=== PATIENT | male | born 1965 | race Caucasian/White ===

== ENCOUNTER 2018-07-30 20:40 | Inpatient (IN) | payer BC ==
[~2018-07-30] VITALS: Ht 180.3 cm; Wt 68.7 kg
[2018-07-30] MEDS ORDERED: ONDANSETRON HCL 4MG/2ML INJ IV STA (22:58)
[2018-07-30] MEDS ORDERED: PANTOPRAZOLE SODIUM 40 MG/VIAL IV STA (22:58)
[2018-07-30] MEDS ORDERED: SODIUM CHLORIDE 0.9% 1,000 ML IV ONE (22:58)
[2018-07-30] MEDS ORDERED: OCTREOTIDE 1,000 MCG in SODIUM CHLORIDE 0.9% 100 ML IV STA (22:58)
[2018-07-30] MEDS ORDERED: OCTREOTIDE ACETATE 50 MCG/ML 1ML IV STA (22:58)
[2018-07-30] MEDS ORDERED: LORAZEPAM 2MG/ML CPJ IV ONE (23:00)
[2018-07-30] MEDS ORDERED: PHYTONADIONE 10MG/ML AMP SUBCUT ONE (23:00)
[2018-07-30 23:14] LABS: BASOPHILS % 0.6 % (0.0-2.0); HEMATOCRIT. 29.3 % (42.0-52.0); HEMOGLOBIN. 9.9 g/dL (14.0-18.0); LYMPHOCYTES % 7.2 % (20.0-50.0); MEAN CORPUSCULAR HEMOGLOBIN 33.3 pg (28.0-32.0); MEAN CORPUSCULAR VOLUME 98.9 fL (80.0-94.0); MEAN PLATELET VOLUME 9.3 fl (7.4-10.4); NEUTROPHILS % 83.2 % (40.0-76.0); PLATELET 133 x1000/uL (130-400); RED BLOOD CELL COUNT 2.96 mill/uL (4.7-6.1); RED CELL DISTRIBUTION WIDTH 13.5 % (11.6-14.6)
[2018-07-30 23:16] LABS: CHLORIDE 105 mEq/L (98-107)
[2018-07-30 23:20] LABS: ETHANOL BLOOD < 10 mg/dL
[2018-07-30 23:21] LABS: INR 1.1; PARTIAL THROMBOPLASTIN TIME 25.1 sec (23.4-31.0); PROTHROMBIN TIME 11.4 sec (9.1-11.1)
[2018-07-31] VITALS (10 sets, daily range): BP systolic 121–155; BP diastolic 46–88
[2018-07-31 02:07] LABS: BASOPHILS % 0.6 % (0.0-2.0); HEMATOCRIT. 28.9 % (42.0-52.0); HEMOGLOBIN. 9.5 g/dL (14.0-18.0); LYMPHOCYTES % 13.3 % (20.0-50.0); MEAN CORPUSCULAR HEMOGLOBIN 32.6 pg (28.0-32.0); MEAN CORPUSCULAR VOLUME 99.7 fL (80.0-94.0); MEAN PLATELET VOLUME 9.5 fl (7.4-10.4); MONOCYTES % 9.6 % (2.0-8.0); NEUTROPHILS % 76.5 % (40.0-76.0); PLATELET 126 x1000/uL (130-400); RED CELL DISTRIBUTION WIDTH 13.5 % (11.6-14.6)
[2018-07-31] MEDS ORDERED: SODIUM CHLORIDE 0.9% 1,000 ML IV SCH (02:21)
[2018-07-31 04:13] LABS: CLARITY URINE CLEAR (CLEAR); COLOR URINE YELLOW (YELLOW); KETONES URINE TRACE (NEGATIVE); LEUKOCYTE ESTERASE URINE NEGATIVE (NEGATIVE); NITRITE URINE NEGATIVE (NEGATIVE); OCCULT BLOOD URINE NEGATIVE (NEGATIVE); PROTEIN URINE NEGATIVE (NEGATIVE); SPECIFIC GRAVITY URINE 1.017 (1.005-1.030); UROBILINOGEN URINE 0.2 E.U./dL (0.2-1.0)
[2018-07-31 04:34] LABS: *AMPHETAMINES SCREEN URINE NEGATIVE (NEGATIVE); *BARBITURATES SCREEN URINE NEGATIVE (NEGATIVE); *BENZODIAZEPINES SCREEN URINE NEGATIVE (NEGATIVE); *COCAINE SCREEN URINE PRESUMTIVE POSITIVE (NEGATIVE)
[2018-07-31 04:35] LABS: CANNABINOID URINE SCREEN NEGATIVE (NEGATIVE); METHADONE URINE SCREEN NEGATIVE (NEGATIVE); OPIATES URINE SCREEN NEGATIVE (NEGATIVE); PHENCYCLIDINE URINE SCREEN NEGATIVE (NEGATIVE)
[2018-07-31] MEDS ORDERED: LORAZEPAM 2MG/ML CPJ IV PRN (12:30)
[2018-07-31 15:03] LABS: HEMATOCRIT 23.5 % (42.0-52.0); HEMOGLOBIN 7.9 g/dL (14.0-18.0)
[2018-07-31] MEDS: FOLIC ACID 1 MG, THIAMINE HCL 100 MG, MVI, ADULT NO.1 10 ML in DEXTROSE 5% WATER 1,000 ML IV SCH ×4 (15:12)
[2018-07-31] MEDS: PANTOPRAZOLE SODIUM 40 MG/VIAL IV SCH (18:40)
[2018-07-31 19:44] LABS: HEMATOCRIT 23.8 % (42.0-52.0)
[2018-07-31] MEDS: CHLORDIAZEPOXIDE 5 MG CAPSULE PO SCH (22:23)
[2018-07-31] MEDS: DEXT 5% WATER + KCL 20MEQ/L 1,000 ML IV SCH (22:23)
[2018-08-01] VITALS (15 sets, daily range): BP systolic 112–152; BP diastolic 57–84
[2018-08-01 05:42] LABS: HEMATOCRIT 25.9 % (42.0-52.0); HEMOGLOBIN 8.7 g/dL (14.0-18.0)
[2018-08-01 06:21] LABS: INR 1.1; PARTIAL THROMBOPLASTIN TIME 25.9 sec (23.4-31.0); PROTHROMBIN TIME 10.9 sec (9.1-11.1)
[2018-08-01 06:31] LABS: HEMATOCRIT 26.8 % (42.0-52.0); HEMOGLOBIN 9.1 g/dL (14.0-18.0); PLATELET 112 x1000/uL (130-400); RED BLOOD CELL COUNT 2.76 mill/uL (4.7-6.1); RED CELL DISTRIBUTION WIDTH 15.5 % (11.6-14.6)
[2018-08-01 07:10] LABS: FOLIC ACID (FOLATE) SERUM >20 ng/mL ng/mL (>5.38)
[2018-08-01] MEDS: CHLORDIAZEPOXIDE 5 MG CAPSULE PO SCH ×3 (07:12→21:29)
[2018-08-01] MEDS: PANTOPRAZOLE SODIUM 40 MG/VIAL IV SCH ×2 (07:12→17:26)
[2018-08-01 07:15] LABS: CHLORIDE 110 mEq/L (98-107)
[2018-08-01 07:16] LABS: HEPATITIS B SURFACE ANTIGEN NEGATIVE
[2018-08-01 07:24] LABS: GAMMA GLUTAMYL TRANSPEPTIDASE 575 IU/L (11-50); VITAMIN B12 SERUM 785 pg/mL (211-911)
[2018-08-01 07:45] LABS: HEPATITIS A AB IGM NEGATIVE (NEGATIVE)
[2018-08-01] MEDS: DEXT 5% WATER + KCL 20MEQ/L 1,000 ML IV SCH ×2 (08:52→14:44)
[2018-08-01] MEDS: FOLIC ACID 1 MG, THIAMINE HCL 100 MG, MVI, ADULT NO.1 10 ML in DEXTROSE 5% WATER 1,000 ML IV SCH ×4 (15:00)
[2018-08-01] MEDS: DEXT 5%/0.45% NACL KCL 20MEQ/L 1,000 ML IV SCH (21:29)
[2018-08-02] VITALS (10 sets, daily range): BP systolic 108–147; BP diastolic 59–90
[2018-08-02 01:00] LABS: BASOPHILS % 1.5 % (0.0-2.0); EOSINOPHILS % 1.3 % (0.0-5.0); HEMATOCRIT. 27.2 % (42.0-52.0); HEMOGLOBIN. 9.3 g/dL (14.0-18.0); LYMPHOCYTES % 33.8 % (20.0-50.0); MEAN CORPUSCULAR HEMOGLOBIN 33.2 pg (28.0-32.0); MEAN CORPUSCULAR VOLUME 96.7 fL (80.0-94.0); MEAN PLATELET VOLUME 8.4 fl (7.4-10.4); MONOCYTES % 7.9 % (2.0-8.0); NEUTROPHILS % 55.5 % (40.0-76.0); PLATELET 135 x1000/uL (130-400); RED BLOOD CELL COUNT 2.81 mill/uL (4.7-6.1); RED CELL DISTRIBUTION WIDTH 14.9 % (11.6-14.6)
[2018-08-02 01:09] LABS: CHLORIDE 105 mEq/L (98-107)
[2018-08-02] MEDS: CHLORDIAZEPOXIDE 5 MG CAPSULE PO SCH ×2 (05:19→14:43)
[2018-08-02] MEDS: DEXT 5%/0.45% NACL KCL 20MEQ/L 1,000 ML IV SCH ×2 (05:19→12:00)
[2018-08-02] MEDS: PANTOPRAZOLE SODIUM 40 MG/VIAL IV SCH ×2 (05:19→18:38)
[2018-08-02 06:45] LABS: BASOPHILS % 1.1 % (0.0-2.0); EOSINOPHILS % 0.9 % (0.0-5.0); HEMATOCRIT. 25.6 % (42.0-52.0); HEMOGLOBIN. 8.7 g/dL (14.0-18.0); MEAN CORPUSCULAR HEMOGLOBIN 32.8 pg (28.0-32.0); MEAN CORPUSCULAR VOLUME 96.8 fL (80.0-94.0); MONOCYTES % 8.1 % (2.0-8.0); NEUTROPHILS % 77.9 % (40.0-76.0); PLATELET 118 x1000/uL (130-400); RED BLOOD CELL COUNT 2.65 mill/uL (4.7-6.1)
[2018-08-02 08:28] LABS: CHLORIDE 108 mEq/L (98-107)
[2018-08-02] MEDS ORDERED: POTASSIUM CHLORIDE IV NR ×4 (11:00)
[2018-08-02] MEDS ORDERED: WATER IV NR ×4 (11:00)
[2018-08-02] MEDS ORDERED: DEXT 5% IV NR ×4 (11:00)
[2018-08-02] MEDS ORDERED: SODIUM CHLORIDE IV NR ×4 (11:00)
[2018-08-02] MEDS ORDERED: SIMETHICONE 40 MG/0.6 ML 30ML ONE (11:26)
[2018-08-02] MEDS ORDERED: FENTANYL CITRATE/PF 50MCG/ML 2ML VIAL ONE (11:40)
[2018-08-02] MEDS ORDERED: DIPHENHYDRAMINE 50MG/ML VIAL ONE (11:40)
[2018-08-02] MEDS ORDERED: MIDAZOLAM HCL 2 MG/2 ML VIAL ONE (11:40)
[2018-08-02] MEDS ORDERED: PROPOFOL 200MG/20ML VIAL IV ONE (11:41)
[2018-08-02] MEDS: FOLIC ACID 1 MG, THIAMINE HCL 100 MG, MVI, ADULT NO.1 10 ML in DEXTROSE 5% WATER 1,000 ML IV SCH ×4 (14:42)
[2018-08-02] MEDS ORDERED: VITA-137 MT ×2 (19:34→19:36)
[2018-08-02] MEDS ORDERED: L10 PO ×2 (19:34→19:36)
[2018-08-02] MEDS ORDERED: FERR325T6 MT ×2 (19:35→19:37)
== END 2018-08-02 20:30 | disposition home or self-care (01) | DRG 377 ==
LOC: ER 20:40 → 5EST 07-31 02:22 → EDBEDREQ 07-31 02:26 → EDBEDREQSVC 07-31 02:26 → EDBEDREQTM 07-31 02:26 → ENRESERV 07-31 07:18
PROVIDERS: ADMIT Ophthalmology; ATTEND Ophthalmology
PROC: 30233N1 Transfusion of Nonautologous Red Blood Cells into Peripheral Vein, Percutaneous Approach (ICD-10-PCS; 2018-07-31)
PROC: 0DB68ZX Excision of Stomach, Via Natural or Artificial Opening Endoscopic, Diagnostic (ICD-10-PCS; principal; 2018-08-02)
DX: K29.71 Gastritis, unspecified, with bleeding (principal); I21.4 Non-ST elevation (NSTEMI) myocardial infarction; I10 Essential (primary) hypertension; R04.0 Epistaxis; E87.6 Hypokalemia; F17.210 Nicotine dependence, cigarettes, uncomplicated; J44.9 Chronic obstructive pulmonary disease, unspecified; K40.90 Unilateral inguinal hernia, without obstruction or gangrene, not specified as recurrent; K44.9 Diaphragmatic hernia without obstruction or gangrene; K74.60 Unspecified cirrhosis of liver; F10.20 Alcohol dependence, uncomplicated; D53.1 Other megaloblastic anemias, not elsewhere classified; K29.81 Duodenitis with bleeding
CPT/HCPCS: 36415; 71045; 76700; 80048; 80076; 80305; 80320; 82270; 82607; 82746; 82977; 83605; 84484; 85014; 85018; 85027; 86705; 86709; 86803; 86850; 86900; 86920; 87340; 88305; 88312; 88313; 93005; 93306; 96374; 96375; 99291; C9113; J1200; J2060; J2250; J2354; J2405; J2704; J3010; J3411; J3430; J3480; J3490; J7030; J7040; J7050; J7060; J7070; J7131; P9016; G0480

== ENCOUNTER 2023-01-20 18:22 | Inpatient (IN) | payer SELFPAY ==
[~2023-01-20] VITALS: Ht 182.9 cm; Wt 87.1 kg
[~2023-01-20 18:22] MED LIST: FERR325T6 MT; L10 PO; VITA-137 MT
[2023-01-20] MEDS ORDERED: SODIUM CHLORIDE 0.9% 1,000 ML IV ONE (18:30)
[2023-01-20 19:01] LABS: DIFFERENTIAL COMMENT 1; HEMOGLOBIN. 10.3 g/dL (14.0-18.0); MEAN CORPUSCULAR HEMOGLOBIN 33.4 pg (28.0-32.0); MEAN CORPUSCULAR HGB CONC 34.3 g/dL (31.0-37.0); MEAN CORPUSCULAR VOLUME 97.4 fL (80.0-94.0); MEAN PLATELET VOLUME 8.3 fl (7.4-10.4); PLATELET 100 x1000/uL (130-400); RED BLOOD CELL COUNT 3.07 mill/uL (4.7-6.1); RED CELL DISTRIBUTION WIDTH 20.9 % (11.6-14.6); WHITE BLOOD COUNT 7.5 x1000/uL (4.5-11.0)
[2023-01-20 19:06] LABS: CHLORIDE 87 mEq/L (98-107); INDEX HEMOLYSI 1 (1-3); INDEX ICTERIC 3 (1-4); INDEX LIPEMIC 1 (1-3); POTASSIUM 2.9 mEq/L (3.5-5.1); SODIUM 128 mEq/L (136-145)
[2023-01-20 19:07] LABS: INR 2.3; PARTIAL THROMBOPLASTIN TIME 37.6 sec (23.4-31.0); PROTHROMBIN TIME 23.7 sec (9.6-11.0)
[2023-01-20 19:13] LABS: AMMONIA 35 uMol/L (<32)
[2023-01-20 19:17] LABS: ALANINE AMINOTRANSFERASE 54 IU/L (13-61); ALBUMIN 2.2 g/dL (3.4-5.0); ASPARTATE AMINOTRANSFERASE 96 IU/L (15-37); CALCIUM 7.7 mg/dL (8.5-10.1); CARBON DIOXIDE 32 mEq/L (21-32); CREATININE 0.5 mg/dL (0.6-1.3); ETHANOL BLOOD < 10 mg/dL (-10); GLUCOSE 132 mg/dL (70-105); NT PRO B-TYPE NATRIURETIC PEP 50 pg/mL (5-125); PLATELET ESTIMATE DECREASED; PROTEIN TOTAL 6.7 g/dL (6.0-8.3); TROPONIN I HIGH SENSITIVITY 29 ng/L (<78); UREA NITROGEN BLOOD 19 mg/dL (7-21)
[2023-01-20 19:18] LABS: ANISOCYTOSIS 2+; HYPOCHROMASIA 1+; TARGET CELLS 1+
[2023-01-20] MEDS ORDERED: LACTULOSE 20G/30ML UDC PO ONE (19:45)
[2023-01-20] MEDS ORDERED: POTASSIUM CHLORIDE 20MEQ TABLET SR PO ONE (20:15)
[2023-01-20] MEDS ORDERED: VANCOMYCIN 1G PREMIX 200 ML IV ONE (21:00)
[2023-01-20] MEDS ORDERED: PIPERACILLIN/TAZ 3.375G PREMIX 50 ML IV ONE (21:00)
[2023-01-20] MEDS ORDERED: VANCOMYCIN 1G PREMIX 200 ML IV NR (21:00)
[2023-01-20] MEDS ORDERED: PIPERACILLIN/TAZ 3.375G PREMIX 50 ML IV NR (21:00)
[2023-01-20 21:51] LABS: LACTIC ACID 5.3 mmol/L (0.4-2.0)
[2023-01-21] VITALS (7 sets, daily range): BP systolic 133–156; BP diastolic 70–86; PULSE 116–124; RESP 18–21; TEMP 97.5–98.8
[2023-01-21] MEDS ORDERED: CLONIDINE 0.1MG TABLET PO PRN (02:00)
[2023-01-21] MEDS ORDERED: CEFTRIAXONE 1GM PREMIX 50 ML IV SCH (02:00)
[2023-01-21] MEDS ORDERED: DEXTROSE 50% WATER 50ML SYRINGE IV PRN (02:00)
[2023-01-21] MEDS ORDERED: FOLIC ACID 1 MG, THIAMINE HCL 100 MG, MVI, ADULT NO.1 10 ML in DEXTROSE 5% WATER 1,000 ML IV ONE ×4 (03:30)
[2023-01-21 06:48] LABS: HEMATOCRIT. 28.2 % (42.0-52.0); HEMOGLOBIN. 9.7 g/dL (14.0-18.0); MEAN CORPUSCULAR HEMOGLOBIN 33.4 pg (28.0-32.0); MEAN CORPUSCULAR HGB CONC 34.3 g/dL (31.0-37.0); MEAN CORPUSCULAR VOLUME 97.5 fL (80.0-94.0); RED CELL DISTRIBUTION WIDTH 21.2 % (11.6-14.6); WHITE BLOOD COUNT 7.9 x1000/uL (4.5-11.0)
[2023-01-21 06:57] LABS: DIFFERENTIAL COMMENT 1
[2023-01-21 06:58] LABS: CHLORIDE 91 mEq/L (98-107); INDEX HEMOLYSI 1 (1-3); INDEX ICTERIC 3 (1-4); INDEX LIPEMIC 1 (1-3); SODIUM 129 mEq/L (136-145)
[2023-01-21 07:04] LABS: CALCIUM 7.6 mg/dL (8.5-10.1); CARBON DIOXIDE 32 mEq/L (21-32); CREATININE 0.4 mg/dL (0.6-1.3); GLUCOSE 124 mg/dL (70-105); UREA NITROGEN BLOOD 18 mg/dL (7-21)
[2023-01-21 07:10] LABS: POTASSIUM 2.8 mEq/L (3.5-5.1)
[2023-01-21] MEDS: BLOOD SUGAR DIAGNOSTIC STRIP TEST SCH ×4 (07:20→20:19)
[2023-01-21] MEDS: INSULIN LISPRO 100 UNITS/ML SUBCUT SCH ×4 (07:20→20:19)
[2023-01-21] MEDS ORDERED: POTASSIUM CHLORIDE INJ 40 MEQ in DEXT 5% WATER 250 ML IV ONE (07:30)
[2023-01-21] MEDS: PANTOPRAZOLE 40MG DR TABLET PO SCH (08:10)
[2023-01-21] MEDS: SPIRONOLACTONE 50MG TABLET PO SCH (08:10)
[2023-01-21] MEDS: CEFTRIAXONE 1,000 MG in DEXTROSE 5% WATER 50 ML IV SCH (08:11)
[2023-01-21 08:47] LABS: ANISOCYTOSIS 2+; MEAN PLATELET VOLUME 8.5 fl (7.4-10.4); PLATELET 93 x1000/uL (130-400); PLATELET ESTIMATE DECREASED; TARGET CELLS 1+
[2023-01-21] MEDS ORDERED: FUROSEMIDE 40MG TABLET PO SCH (09:00)
[2023-01-21] MEDS: FUROSEMIDE 40MG TABLET PO SCH ×2 (09:02→16:17)
[2023-01-21] MEDS: KCL 20MEQ/100ML X 2 FOR TOTAL KCL 40MEQ/200ML IV SCH ×2 (09:02→10:03)
[2023-01-21 10:20] LABS: CLARITY URINE CLEAR (CLEAR); COLOR URINE DARK YELLOW (YELLOW); GLUCOSE URINE NEGATIVE (NEGATIVE); KETONES URINE TRACE (NEGATIVE); LEUKOCYTE ESTERASE URINE TRACE (NEGATIVE); NITRITE URINE NEGATIVE (NEGATIVE); OCCULT BLOOD URINE NEGATIVE (NEGATIVE); PROTEIN URINE NEGATIVE (NEGATIVE); SPECIFIC GRAVITY URINE 1.023 (1.005-1.030)
[2023-01-21 10:55] LABS: SQUAMOUS EPITHELIAL CELL URINE FEW /lpf (RARE/1+)
[2023-01-21 10:56] LABS: MUCUS URINE TRACE /lpf (NONE/TRACE)
[2023-01-21 10:57] LABS: BACTERIA URINE TRACE; RBC URINE 0-2 /hpf (0-2)
[2023-01-21 10:59] LABS: WBC URINE 0-2 /hpf (0-2)
[2023-01-21 11:00] LABS: *AMPHETAMINES SCREEN URINE NEGATIVE (NEGATIVE); *BARBITURATES SCREEN URINE NEGATIVE (NEGATIVE); *BENZODIAZEPINES SCREEN URINE NEGATIVE (NEGATIVE); *COCAINE SCREEN URINE NEGATIVE (NEGATIVE); CANNABINOID URINE SCREEN NEGATIVE (NEGATIVE); ECSTASY MDMA SCREEN URINE NEGATIVE (NEGATIVE); METHADONE URINE SCREEN NEGATIVE (NEGATIVE); OPIATES URINE SCREEN NEGATIVE (NEGATIVE); PHENCYCLIDINE URINE SCREEN NEGATIVE (NEGATIVE)
[2023-01-21] MEDS ORDERED: LORAZEPAM 2MG/ML CPJ IV PRN (15:45)
[2023-01-21] MEDS: METOPROLOL TARTRATE 25MG TABLET PO SCH (20:34)
[2023-01-22] VITALS (9 sets, daily range): BP systolic 118–160; BP diastolic 54–89; PULSE 69–122; RESP 16–22; TEMP 96.1–98.2
[2023-01-22] MEDS: INSULIN LISPRO 100 UNITS/ML SUBCUT SCH ×4 (06:19→20:45)
[2023-01-22] MEDS: BLOOD SUGAR DIAGNOSTIC STRIP TEST SCH ×4 (06:19→20:46)
[2023-01-22] MEDS: CEFTRIAXONE 1,000 MG in DEXTROSE 5% WATER 50 ML IV SCH (10:48)
[2023-01-22 10:55] LABS: HEMATOCRIT 24.4 % (42.0-52.0); HEMOGLOBIN 8.3 g/dL (14.0-18.0)
[2023-01-22] MEDS: FUROSEMIDE 40MG TABLET PO SCH ×2 (10:58→17:50)
[2023-01-22] MEDS: SPIRONOLACTONE 50MG TABLET PO SCH (10:58)
[2023-01-22] MEDS: METOPROLOL TARTRATE 25MG TABLET PO SCH ×2 (10:59→20:45)
[2023-01-22] MEDS: PANTOPRAZOLE 40MG DR TABLET PO SCH (10:59)
[2023-01-22 11:08] LABS: PROTHROMBIN TIME 20.3 sec (9.6-11.0)
[2023-01-22] MEDS ORDERED: CEFTRIAXONE 1GM PREMIX 50 ML IV SCH (14:15)
[2023-01-22 16:17] LABS: CHLORIDE 87 mEq/L (98-107); INDEX HEMOLYSI 1 (1-3); INDEX ICTERIC 3 (1-4); INDEX LIPEMIC 1 (1-3); POTASSIUM 3.1 mEq/L (3.5-5.1); SODIUM 124 mEq/L (136-145)
[2023-01-22 16:22] LABS: CARBON DIOXIDE 31 mEq/L (21-32); CREATININE 0.5 mg/dL (0.6-1.3); GLUCOSE 92 mg/dL (70-105); UREA NITROGEN BLOOD 19 mg/dL (7-21)
[2023-01-22] MEDS ORDERED: HYDROCODONE/ACETAMINOPHEN 5/325MG TABLET PO PRN (17:15)
[2023-01-22] MEDS ORDERED: NALOXONE HCL 0.4MG/ML VIAL IV PRN (17:15)
[2023-01-22 17:41] LABS: BASOPHILS % 0.2 % (0.0-2.0); HEMOGLOBIN. 8.5 g/dL (14.0-18.0); LYMPHOCYTES % 15.7 % (20.0-50.0); MEAN CORPUSCULAR HEMOGLOBIN 33.4 pg (28.0-32.0); MEAN CORPUSCULAR HGB CONC 33.8 g/dL (31.0-37.0); MEAN CORPUSCULAR VOLUME 98.8 fL (80.0-94.0); MEAN PLATELET VOLUME 8.5 fl (7.4-10.4); MONOCYTES % 11.4 % (2.0-8.0); NEUTROPHILS % 72.7 % (40.0-76.0); PLATELET 70 x1000/uL (130-400); RED BLOOD CELL COUNT 2.53 mill/uL (4.7-6.1); RED CELL DISTRIBUTION WIDTH 20.7 % (11.6-14.6); WHITE BLOOD COUNT 7.7 x1000/uL (4.5-11.0)
[2023-01-22] MEDS: AZITHROMYCIN 500 MG TABLET PO SCH (17:49)
[2023-01-22] MEDS: POTASSIUM CHLORIDE 20MEQ/PACKET PO SCH (17:50)
[2023-01-23] VITALS (16 sets, daily range): BP systolic 103–152; BP diastolic 62–87; PULSE 63–104; RESP 18–20; TEMP 97–98.1; O2SAT 92
[2023-01-23] MEDS: INSULIN LISPRO 100 UNITS/ML SUBCUT SCH ×4 (06:26→21:00)
[2023-01-23] MEDS: BLOOD SUGAR DIAGNOSTIC STRIP TEST SCH ×4 (06:26→21:00)
[2023-01-23] MEDS: PANTOPRAZOLE 40MG DR TABLET PO SCH (08:16)
[2023-01-23] MEDS: POTASSIUM CHLORIDE 20MEQ/PACKET PO SCH (08:16)
[2023-01-23] MEDS: FUROSEMIDE 40MG TABLET PO SCH ×2 (08:16→16:52)
[2023-01-23] MEDS: SPIRONOLACTONE 50MG TABLET PO SCH ×2 (08:16→14:24)
[2023-01-23] MEDS: AZITHROMYCIN 500 MG TABLET PO SCH (08:17)
[2023-01-23] MEDS: CEFTRIAXONE 1,000 MG in DEXTROSE 5% WATER 50 ML IV SCH (08:17)
[2023-01-23] MEDS: METOPROLOL TARTRATE 25MG TABLET PO SCH ×2 (08:17→21:00)
[2023-01-23] MEDS: IPRATROPIUM BROMIDE (0.02%) 0.5MG/2.5ML NEB HHN SCH ×3 (10:16→21:31)
[2023-01-23 10:38] LABS: BASOPHILS % 0.7 % (0.0-2.0); EOSINOPHILS % 0.5 % (0.0-5.0); HEMOGLOBIN. 8.2 g/dL (14.0-18.0); LYMPHOCYTES % 16.7 % (20.0-50.0); MEAN CORPUSCULAR HEMOGLOBIN 33.2 pg (28.0-32.0); MEAN CORPUSCULAR HGB CONC 34.1 g/dL (31.0-37.0); MEAN CORPUSCULAR VOLUME 97.6 fL (80.0-94.0); MEAN PLATELET VOLUME 8.4 fl (7.4-10.4); MONOCYTES % 12.6 % (2.0-8.0); NEUTROPHILS % 69.5 % (40.0-76.0); PLATELET 76 x1000/uL (130-400); RED BLOOD CELL COUNT 2.46 mill/uL (4.7-6.1); RED CELL DISTRIBUTION WIDTH 21.1 % (11.6-14.6); WHITE BLOOD COUNT 7.2 x1000/uL (4.5-11.0)
[2023-01-23 11:04] LABS: CHLORIDE 92 mEq/L (98-107); INDEX HEMOLYSI 1 (1-3); INDEX ICTERIC 3 (1-4); INDEX LIPEMIC 1 (1-3); POTASSIUM 2.9 mEq/L (3.5-5.1); SODIUM 127 mEq/L (136-145)
[2023-01-23 11:09] LABS: CALCIUM 7.8 mg/dL (8.5-10.1); CARBON DIOXIDE 32 mEq/L (21-32); CREATININE 0.6 mg/dL (0.6-1.3); GLUCOSE 98 mg/dL (70-105); UREA NITROGEN BLOOD 20 mg/dL (7-21)
[2023-01-23] MEDS ORDERED: POTASSIUM CHLORIDE 20MEQ/PACKET PO NR (11:30)
[2023-01-23] MEDS ORDERED: POTASSIUM CHLORIDE 20MEQ TABLET SR PO NR (13:15)
[2023-01-23 17:56] LABS: INR 1.9; PROTHROMBIN TIME 19.7 sec (9.6-11.0)
[2023-01-24] VITALS (11 sets, daily range): BP systolic 101–131; BP diastolic 55–80; PULSE 92–116; RESP 18–20; TEMP 97–100.4
[2023-01-24 05:55] LABS: CHLORIDE 97 mEq/L (98-107); INDEX HEMOLYSI 1 (1-3); INDEX ICTERIC 3 (1-4); INDEX LIPEMIC 1 (1-3); SODIUM 131 mEq/L (136-145)
[2023-01-24 06:01] LABS: CALCIUM 8.2 mg/dL (8.5-10.1); CARBON DIOXIDE 28 mEq/L (21-32); CREATININE 0.6 mg/dL (0.6-1.3); GLUCOSE 93 mg/dL (70-105); UREA NITROGEN BLOOD 15 mg/dL (7-21)
[2023-01-24 06:11] LABS: BASOPHILS % 1.1 % (0.0-2.0); HEMATOCRIT. 24.3 % (42.0-52.0); HEMOGLOBIN. 8.4 g/dL (14.0-18.0); LYMPHOCYTES % 18.7 % (20.0-50.0); MEAN CORPUSCULAR HEMOGLOBIN 34.7 pg (28.0-32.0); MEAN CORPUSCULAR HGB CONC 34.7 g/dL (31.0-37.0); MEAN PLATELET VOLUME 8.5 fl (7.4-10.4); MONOCYTES % 12.4 % (2.0-8.0); NEUTROPHILS % 66.8 % (40.0-76.0); PLATELET 81 x1000/uL (130-400); RED BLOOD CELL COUNT 2.43 mill/uL (4.7-6.1); RED CELL DISTRIBUTION WIDTH 21.4 % (11.6-14.6); WHITE BLOOD COUNT 6.7 x1000/uL (4.5-11.0)
[2023-01-24] MEDS: BLOOD SUGAR DIAGNOSTIC STRIP TEST SCH ×4 (06:17→21:09)
[2023-01-24 06:40] LABS: INR 1.7; PROTHROMBIN TIME 17.9 sec (9.6-11.0)
[2023-01-24] MEDS: CEFTRIAXONE 1,000 MG in DEXTROSE 5% WATER 50 ML IV SCH (08:58)
[2023-01-24] MEDS: FUROSEMIDE 40MG TABLET PO SCH ×2 (08:59→17:16)
[2023-01-24] MEDS: POTASSIUM CHLORIDE 20MEQ/PACKET PO SCH (08:59)
[2023-01-24] MEDS: AZITHROMYCIN 500 MG TABLET PO SCH (08:59)
[2023-01-24] MEDS: PANTOPRAZOLE 40MG DR TABLET PO SCH (08:59)
[2023-01-24] MEDS: METOPROLOL TARTRATE 25MG TABLET PO SCH ×2 (09:00→21:09)
[2023-01-24] MEDS: SPIRONOLACTONE 50MG TABLET PO SCH (09:24)
[2023-01-24] MEDS: IPRATROPIUM BROMIDE (0.02%) 0.5MG/2.5ML NEB HHN SCH ×2 (09:45→20:55)
[2023-01-24] MEDS ORDERED: LIDOCAINE HCL 1% 10 MG/ML 10ML VIAL ONE (11:29)
[2023-01-24] MEDS ORDERED: SODIUM BICARBONATE 4% (2.4MEQ) 5ML VIAL IV ONE (11:29)
[2023-01-24] MEDS: INSULIN LISPRO 100 UNITS/ML SUBCUT SCH ×3 (12:40→21:00)
[2023-01-24] MEDS ORDERED: LACTULOSE 20G/30ML UDC PO NR (16:30)
[2023-01-24 17:22] LABS: BODY FLUID MONOCYTES 7 %; BODY FLUID RBC 20 /cu mm (0-2000); BODY FLUID WBC 395 /cu mm (0-200)
[2023-01-24] MEDS ORDERED: ALBUMIN HUMAN 25GM/100ML (25%) IV NR (17:30)
[2023-01-24] MEDS: PHYTONADIONE 10MG/ML AMP SUBCUT SCH (17:44)
[2023-01-24] MEDS: OCTREOTIDE 1,000 MCG in SODIUM CHLORIDE 0.9% 98 ML IV SCH (19:00)
[2023-01-24 20:25] LABS: HEMOGLOBIN 7.6 g/dL (14.0-18.0)
[2023-01-24 20:46] LABS: AMMONIA 39 uMol/L (<32)
[2023-01-24 20:50] LABS: ALBUMIN 2.2 g/dL (3.4-5.0); BILIRUBIN DIRECT 2.5 mg/dL (0.0-0.2); BILIRUBIN TOTAL 3.8 mg/dL (0.1-1.0)
[2023-01-24 21:03] LABS: FERRITIN 190 ng/mL (22-322)
[2023-01-24 21:14] LABS: HEPATITIS B SURFACE ANTIGEN NEGATIVE
[2023-01-24 21:24] LABS: VITAMIN B12 SERUM >2000 pg/mL pg/mL (211-911)
[2023-01-24 21:43] LABS: HEPATITIS A AB IGM NEGATIVE (NEGATIVE)
[2023-01-25] VITALS (11 sets, daily range): BP systolic 91–136; BP diastolic 56–78; PULSE 64–86; RESP 18–20; TEMP 97.8–100.9; O2SAT 95
[2023-01-25] MEDS: IPRATROPIUM BROMIDE (0.02%) 0.5MG/2.5ML NEB HHN SCH ×4 (01:05→21:06)
[2023-01-25 03:17] LABS: BASOPHILS % 2.3 % (0.0-2.0); EOSINOPHILS % 4.1 % (0.0-5.0); HEMOGLOBIN. 7.5 g/dL (14.0-18.0); LYMPHOCYTES % 23.4 % (20.0-50.0); MEAN CORPUSCULAR HEMOGLOBIN 34.2 pg (28.0-32.0); MEAN CORPUSCULAR VOLUME 100.5 fL (80.0-94.0); NEUTROPHILS % 55.2 % (40.0-76.0); PLATELET 80 x1000/uL (130-400); RED BLOOD CELL COUNT 2.19 mill/uL (4.7-6.1); RED CELL DISTRIBUTION WIDTH 21.2 % (11.6-14.6); WHITE BLOOD COUNT 5.6 x1000/uL (4.5-11.0)
[2023-01-25 03:22] LABS: DIFFERENTIAL COMMENT 1
[2023-01-25 03:27] LABS: CHLORIDE 98 mEq/L (98-107); INDEX HEMOLYSI 1 (1-3); INDEX ICTERIC 2 (1-4); INDEX LIPEMIC 1 (1-3); INR 1.9; POTASSIUM 3.4 mEq/L (3.5-5.1); SODIUM 131 mEq/L (136-145)
[2023-01-25 03:34] LABS: CALCIUM 8.3 mg/dL (8.5-10.1); CARBON DIOXIDE 27 mEq/L (21-32); CREATININE 0.5 mg/dL (0.6-1.3); GLUCOSE 91 mg/dL (70-105); UREA NITROGEN BLOOD 12 mg/dL (7-21)
[2023-01-25] MEDS: BLOOD SUGAR DIAGNOSTIC STRIP TEST SCH ×4 (06:39→20:47)
[2023-01-25] MEDS: INSULIN LISPRO 100 UNITS/ML SUBCUT SCH ×4 (06:39→20:53)
[2023-01-25] MEDS: CEFTRIAXONE 1,000 MG in DEXTROSE 5% WATER 50 ML IV SCH ×2 (08:57→15:29)
[2023-01-25] MEDS: POTASSIUM CHLORIDE 20MEQ/PACKET PO SCH (08:59)
[2023-01-25] MEDS: PANTOPRAZOLE 40MG DR TABLET PO SCH (08:59)
[2023-01-25] MEDS: FUROSEMIDE 40MG TABLET PO SCH ×2 (08:59→16:58)
[2023-01-25] MEDS: METOPROLOL TARTRATE 25MG TABLET PO SCH ×2 (08:59→20:47)
[2023-01-25] MEDS: SPIRONOLACTONE 50MG TABLET PO SCH (08:59)
[2023-01-25] MEDS: AZITHROMYCIN 500 MG TABLET PO SCH (09:00)
[2023-01-25] MEDS ORDERED: PROPOFOL 200MG/20ML VIAL IV ONE (11:12)
[2023-01-25] MEDS ORDERED: DEXAMETHASONE 4MG/ML 1ML VIAL ONE (11:13)
[2023-01-25] MEDS ORDERED: MIDAZOLAM HCL 2 MG/2 ML VIAL ONE (11:13)
[2023-01-25] MEDS ORDERED: ONDANSETRON HCL 4MG/2ML INJ ONE (11:13)
[2023-01-25] MEDS ORDERED: PHENYLEPHRINE HCL 10 MG/ML 1ML (IV VIAL) IV ONE (11:29)
[2023-01-25] MEDS: PHYTONADIONE 10MG/ML AMP SUBCUT SCH (16:59)
[2023-01-25] MEDS: OCTREOTIDE 1,000 MCG in SODIUM CHLORIDE 0.9% 98 ML IV SCH (20:47)
[2023-01-26] VITALS (7 sets, daily range): BP systolic 98–124; BP diastolic 52–90; PULSE 73–88; RESP 17–20; TEMP 97–99; O2SAT 95–96
[2023-01-26] MEDS: IPRATROPIUM BROMIDE (0.02%) 0.5MG/2.5ML NEB HHN SCH ×2 (01:52→08:36)
[2023-01-26] MEDS: BLOOD SUGAR DIAGNOSTIC STRIP TEST SCH ×2 (06:20→11:47)
[2023-01-26] MEDS: INSULIN LISPRO 100 UNITS/ML SUBCUT SCH ×2 (06:20→11:47)
[2023-01-26 06:32] LABS: INDEX HEMOLYSI 1 (1-3)
[2023-01-26 06:41] LABS: AMMONIA 47 uMol/L (<32)
[2023-01-26 07:36] LABS: BASOPHILS % 0.3 % (0.0-2.0); DIFFERENTIAL COMMENT 0; EOSINOPHILS % 0.5 % (0.0-5.0); LYMPHOCYTES % 15.5 % (20.0-50.0); MEAN CORPUSCULAR HGB CONC 33.3 g/dL (31.0-37.0); MEAN CORPUSCULAR VOLUME 102.1 fL (80.0-94.0); MEAN PLATELET VOLUME 8.6 fl (7.4-10.4); NEUTROPHILS % 72.7 % (40.0-76.0); PLATELET 95 x1000/uL (130-400); RED BLOOD CELL COUNT 2.35 mill/uL (4.7-6.1); RED CELL DISTRIBUTION WIDTH 21.2 % (11.6-14.6); WHITE BLOOD COUNT 6.3 x1000/uL (4.5-11.0)
[2023-01-26] MEDS: CEFTRIAXONE 1,000 MG in DEXTROSE 5% WATER 50 ML IV SCH (08:39)
[2023-01-26] MEDS: POTASSIUM CHLORIDE 20MEQ/PACKET PO SCH (08:39)
[2023-01-26] MEDS: AZITHROMYCIN 500 MG TABLET PO SCH (08:40)
[2023-01-26] MEDS: PANTOPRAZOLE 40MG DR TABLET PO SCH (08:40)
[2023-01-26] MEDS: SPIRONOLACTONE 50MG TABLET PO SCH (08:40)
[2023-01-26] MEDS: METOPROLOL TARTRATE 25MG TABLET PO SCH (08:40)
[2023-01-26] MEDS: FUROSEMIDE 40MG TABLET PO SCH (08:40)
[2023-01-26] MEDS: OCTREOTIDE 1,000 MCG in SODIUM CHLORIDE 0.9% 98 ML IV SCH (09:59)
[2023-01-26] MEDS ORDERED: SPIR50TA5 MT (10:46)
[2023-01-26] MEDS ORDERED: THIA100T88 MT (10:46)
[2023-01-26] MEDS ORDERED: PROP10TA10 MT (10:46)
[2023-01-26] MEDS ORDERED: FURO-151 MT (10:46)
[2023-01-26 12:17] LABS: CHLORIDE 98 mEq/L (98-107); INDEX HEMOLYSI 1 (1-3); INDEX ICTERIC 2 (1-4); INDEX LIPEMIC 1 (1-3); POTASSIUM 4.2 mEq/L (3.5-5.1); SODIUM 130 mEq/L (136-145)
[2023-01-26 12:25] LABS: ALANINE AMINOTRANSFERASE 43 IU/L (13-61); ALBUMIN 2.3 g/dL (3.4-5.0); ASPARTATE AMINOTRANSFERASE 71 IU/L (15-37); BILIRUBIN DIRECT 2.1 mg/dL (0.0-0.2); BILIRUBIN TOTAL 4.1 mg/dL (0.1-1.0); CALCIUM 8.1 mg/dL (8.5-10.1); CARBON DIOXIDE 26 mEq/L (21-32); CREATININE 0.6 mg/dL (0.6-1.3); GLUCOSE 110 mg/dL (70-105); PROTEIN TOTAL 6.1 g/dL (6.0-8.3); UREA NITROGEN BLOOD 12 mg/dL (7-21)
[2023-01-27 21:21] LABS: HEPATITIS B CORE AB IGM NEGATIVE; HEPATITIS C VIR.AB 0.17 INDEXVAL (0.00-0.80)
== END 2023-01-26 13:52 | disposition home or self-care (01) | DRG 52 ==
LOC: ER 18:22 → 8WST 21:25
PROVIDERS: ADMIT Internal Medicine; ATTEND Internal Medicine
PROC: 30233K1 Transfusion of Nonautologous Frozen Plasma into Peripheral Vein, Percutaneous Approach (ICD-10-PCS; 2023-01-23)
PROC: 0W9G3ZZ Drainage of Peritoneal Cavity, Percutaneous Approach (ICD-10-PCS; 2023-01-24)
PROC: 06L38CZ Occlusion of Esophageal Vein with Extraluminal Device, Via Natural or Artificial Opening Endoscopic (ICD-10-PCS; principal; 2023-01-25)
DX: G92.8 Other toxic encephalopathy (principal); J96.01 Acute respiratory failure with hypoxia; E43 Unspecified severe protein-calorie malnutrition; K70.40 Alcoholic hepatic failure without coma; D68.9 Coagulation defect, unspecified; D69.6 Thrombocytopenia, unspecified; I85.10 Secondary esophageal varices without bleeding; E87.1 Hypo-osmolality and hyponatremia; K92.0 Hematemesis; J18.9 Pneumonia, unspecified organism; F10.10 Alcohol abuse, uncomplicated; E87.6 Hypokalemia; Y90.9 Presence of alcohol in blood, level not specified; I10 Essential (primary) hypertension; Z20.822 Contact with and (suspected) exposure to COVID-19; R74.01 Elevation of levels of liver transaminase levels; K40.20 Bilateral inguinal hernia, without obstruction or gangrene, not specified as recurrent; D53.9 Nutritional anemia, unspecified; E11.9 Type 2 diabetes mellitus without complications; K76.6 Portal hypertension; K31.89 Other diseases of stomach and duodenum; K70.31 Alcoholic cirrhosis of liver with ascites; Z68.26 Body mass index [BMI] 26.0-26.9, adult
CPT/HCPCS: 36415; 49083; 71045; 74176; 80048; 80053; 80076; 80305; 80320; 81003; 82140; 82270; 82607; 82728; 82746; 82962; 83036; 83540; 83550; 83605; 83735; 83880; 84145; 84484; 85014; 85018; 85025; 85044; 85049; 86705; 86709; 86803; 86850; 86900; 86927; 87340; 87426; 93005; 94640; 97161; 99291; C9803; J0696; J1100; J1815; J2250; J2354; J2370; J2405; J2543; J2704; J3370; J3411; J3430; J3480; J3490; J7030; J7050; J7060; J7070; P9017; P9047; G0480